=== PATIENT | male | born 1955 | race Caucasian/White ===

== ENCOUNTER 2016-11-19 05:40 | Day surgery (SDC) | payer MEDICARE ==
[2016-11-07 09:27] VITALS: BP 124/84
[~2016-11-19] VITALS: Ht 170.2 cm; Wt 101.0 kg
[~2016-11-19 05:40] MED LIST: AMLO10TA2 PO; ASPI-496 PO; CARV-39 PO; CHOL40002 PO; EMPA10TA PO; FLUT1DIS3 INH; FURO-92 PO; INSU100I32 SQ; LIRA0.6P2 SQ-INSULIN; LISI40TA PO; PIOG15TA2 PO; RANI150T4 PO; ROSU20TA PO; TIOT18CA INH
[2016-11-19] MEDS ORDERED: LACTATED RINGERS 1,000 ML IV SCH (06:10)
[2016-11-19] MEDS ORDERED: FENTANYL PF 100 MCG/2ML ONE ×2 (07:15→09:07)
[2016-11-19] MEDS ORDERED: CIPROFLOXACIN 400MG/200ML PMX ONE (07:34)
[2016-11-19] MEDS ORDERED: PROPOFOL 10 MG/ML, 20ML ONE (07:34)
[2016-11-19] MEDS ORDERED: LIDOCAINE 1%, 20ML ONE (07:34)
[2016-11-19] MEDS ORDERED: ONDANSETRON 2MG/ML, 2ML ONE (07:34)
[2016-11-19] MEDS ORDERED: PHENYLEPHRINE 10 MG/ML ONE (07:34)
[2016-11-19] MEDS ORDERED: LIDOCAINE 2% 100MG/5ML SYRINGE ONE (07:34)
[2016-11-19] MEDS ORDERED: hydrALAzine 20 MG/ML, 1ML IV PRN (08:00)
[2016-11-19] MEDS ORDERED: HYDROmorphone 1 MG/ML, 1ML IV PRN (08:00)
[2016-11-19] MEDS ORDERED: MEPERIDINE/PF 25MG/0.5ML IVPush PRN (08:00)
[2016-11-19] MEDS ORDERED: ACETAMINOPHEN 325 MG TABLET PO PRN (08:00)
[2016-11-19] MEDS ORDERED: ALBUTEROL/IPRATROPIUM 2.5MG/0.5MG, 3 ML NPPB PRN (08:00)
[2016-11-19] MEDS ORDERED: METOPROLOL 1 MG/ML, 5ML IV PRN (08:00)
[2016-11-19] MEDS ORDERED: OXYcodone 5 MG/5 ML ORAL.SOL UDC PO PRN (08:00)
[2016-11-19] MEDS ORDERED: ALBUTEROL SULFATE 2.5 MG/3 ML NPPB PRN (08:00)
[2016-11-19] MEDS ORDERED: OMNIPAQUE 350 MG/ML, 50 ML BOTTLE ONE (08:44)
[2016-11-19] MEDS ORDERED: PHENAZOPYRIDINE 200 MG TABLET ONE (08:47)
[2016-11-19] MEDS ORDERED: PHENAZOPYRIDINE 200 MG TABLET PO ONE (09:00)
[2016-11-19] MEDS ORDERED: OXYcodone 5 MG/5 ML ORAL.SOL UDC ONE (09:07)
[2016-11-19] MEDS: FENTANYL PF 100 MCG/2ML IV PRN ×2 (09:08→09:14)
[2016-11-19] MEDS ORDERED: HYDROcodone/APAP 5/325 TABLET PO ONE (10:00)
[2016-11-19] MEDS ORDERED: HYDROcodone/APAP 5/325 TABLET ONE (10:02)
== END 2016-11-19 11:30 ==
LOC: OUT 05:40
PROVIDERS: ATTEND Urology
DX: N26.1 Atrophy of kidney (terminal) (principal); I12.9 Hypertensive chronic kidney disease with stage 1 through stage 4 chronic kidney disease, or unspecified chronic kidney disease; E11.22 Type 2 diabetes mellitus with diabetic chronic kidney disease; N40.0 Benign prostatic hyperplasia without lower urinary tract symptoms; N18.9 Chronic kidney disease, unspecified; J44.9 Chronic obstructive pulmonary disease, unspecified; E21.3 Hyperparathyroidism, unspecified; Z87.891 Personal history of nicotine dependence; Z79.82 Long term (current) use of aspirin; Z79.4 Long term (current) use of insulin; Z98.890 Other specified postprocedural states; Z82.3 Family history of stroke; Z82.49 Family history of ischemic heart disease and other diseases of the circulatory system
CPT/HCPCS: 52351; 74420; 82962; C1758; J0744; J2370; J2405; J2704; J3010; J3490; J7120; Q9967